=== PATIENT | male | born 1945 | race Caucasian/White ===

== ENCOUNTER 2019-05-27 16:24 | Inpatient (IN) | payer MEDICARE, OTHER ==
[~2019-05-27] VITALS: Ht 172.7 cm; Wt 82.7 kg
[2019-05-27] MEDS ORDERED: XARE20TA PO (16:39)
[2019-05-27] MEDS ORDERED: MULTCAP PO (16:39)
[2019-05-27] MEDS ORDERED: LOSA100T8 PO (16:39)
[2019-05-27] MEDS ORDERED: NS 500 ML IV ONE (17:30)
[2019-05-27 17:50] LABS: BASO # 0.1 10^3/uL (0.0-0.2); BASO % 0.9 % (0.0-1.0); EOS # 0.1 10^3/uL (0.0-0.50); EOS % 2.1 % (0.0-3.0); HEMATOCRIT 40.2 % (42.0-52.0); HEMOGLOBIN 13.7 g/dl (13.5-17.5); LYMPH # 1.8 10^3/uL (1.5-4.5); LYMPH % 26.9 % (24.0-44.0); MEAN CORPUSCULAR HEMOGLOBIN 34.2 pg (27.0-33.0); MEAN CORPUSCULAR HGB CONC 34.1 g/dl (32.0-36.5); MEAN CORPUSCULAR VOLUME 100.2 fl (80.0-96.0); MONO # 0.6 10^3/uL (0.0-0.8); MONO % 8.9 % (0.0-5.0); NEUTROPHILS # 4.1 10^3/uL (1.8-7.7); NEUTROPHILS % 60.9 % (36.0-66.0); PLATELET COUNT, AUTOMATED 318 10^3/uL (150-450); RED BLOOD COUNT 4.01 10^6/uL (4.30-6.10); WHITE BLOOD COUNT 6.8 10^3/uL (4.0-10.0)
[2019-05-27 17:55] LABS: INR 1.27; PARTIAL THROMBOPLASTIN TIME 30.7 SECONDS (25.0-38.4); PROTHROMBIN TIME 15.6 SECONDS (11.8-14.0)
[2019-05-27 17:59] LABS: ALBUMIN 3.4 GM/DL (3.2-5.2); ALT/SGPT 19 U/L (12-78); BILIRUBIN,DIRECT 0.2 MG/DL (0.0-0.2); BILIRUBIN,TOTAL 0.9 MG/DL (0.2-1.0); CPK CREATINE PHOSPHOKINASE 67 U/L (39-308); LIPASE 114 U/L (73-393); MB/CK RELATIVE INDEX 1.49 (< OR =4); TOTAL PROTEIN 6.8 GM/DL (6.4-8.2); TROPONIN I < 0.02 NG/ML (< 0.10)
--- NOTE | 2019-05-27 18:12 | REP ---
Portable chest, 05:38 p.m., single AP view with the patient upright: There are no comparisons. The lung well[place] are clear. The cardiac size is normal. The rashawn, mediastinum, and skeletal structures are unremarkable. Impression: Negative portable chest. Electronically Signed by Pedrito Perez MD 05/27/2019 06:03 P
[2019-05-27] MEDS ORDERED: NS 1,000 ML IV ONE (18:15)
[2019-05-27] MEDS ORDERED: PANTOPRAZOLE 40MG INJ (PROTONIX) (C9113) IV ONE (18:15)
[2019-05-27] MEDS ORDERED: ACETAMINOPHEN TAB 650MG DOSE (2X325MG) PO PRN (19:30)
--- NOTE | 2019-05-27 20:36 | HPEPDOC ---
[facility] Medical History & Physical Date of Admission May 27, 2019 Date of Service: May 27, 2019 History and Physical CHIEF COMPLAINT: [BLACK STOOL] HISTORY OF PRESENT ILLNESS: [This is a 73 yo male with pmhx of htn, afib (re solved per pt since 2011), recent left hip surgery (05/02/19) placed on xarelto who presented to the ed for "black stool" today around 2pm. Patient said he did feel lightheaded, but did not pass out. He denied any other symptoms such as nausea, vomiting , chest pain, sob or abd pain. Patient was started on xeralto since his surgery on May 02. He was on aspirin prior to the surgery without any previous melena or hematemesis. He denied stomach pain, GERD, dyspepsia. ] PAST MEDICAL HISTORY: 1. [htn]. 2. [afib - resolved since 2011 per pt ]. 3. [prostate ca - s/p surgery - in remission for years ]. PAST SURGICAL HISTORY: 1. [prostatectomy ]. 2. [left hip replacement ]. 3. [appendectomy ]. SOCIAL HISTORY: , lives with . denied any hx of smoking, etoh or drug use FAMILY HISTORY: daughter - cva at age 47 mother - ALS father - parkinson's disease ALLERGIES: Please see below. HOME MEDICATIONS: Please see below. ROS - all 10 point review of system is negative except for whats listed in HPI Physical exam Gen: NAD, healthy appearing , very pleasant HEENT: normocephalic, atraumatic, no discharge from ears or nose, no oropharyngeal erythema or exudate, neck is supple, no lymphadenopathy, trachea midline CVS: RRR, normal S1n S2, no murmur, rubs, or gallops, no edema, no jvd Resp: LCTAB, no rhonchi, wheezes. or crackles Abd : soft nontender, normal bowel sounds, no rebound tenderness or guarding MSK: full range of motion, strength 5/5, no swelling, left help with post surgical scar , healing very well, no tenderness, exudate or erythema Neuro: AOAx3, no confusion, no focal deficit Psych: normal mood and affect, good judgment LABORATORY DATA: See below. IMAGING: [ cxr -wnl ] ASSESSMENT and Plan MELENA -Patient is stable , no complaint at this time -NPO - no exceptions -keep type and screen active -H and H q8h for now -monitor in pcu -GI consult -gentle hydration - bp 150/80 -hold xeralto -no nsaids, Antoiplt or AC at this time -Hold BP meds -ok with transfusion HTN - hold bp meds afib - resolved -monitor on tele for now dvt ppx - scd full code , from home , no svc Vital Signs Vital Signs Date Time Temp Pulse Resp B/P (MAP) Pulse Ox O2 Delivery O2 Flow Rate FiO2 05/27/19 18:54 84 100 05/27/19 18:45 97.8 18 136/79 (98) 05/27/19 17:55 Room Air Laboratory Data Labs 24H Laboratory Tests 2 05/27/19 17:19: Immature Granulocyte % (Auto) 0.3, White Blood Count 6.8, Red Blood Count 4.01L, Hemoglobin 13.7, Hematocrit 40.2L, Mean Corpuscular Volume 100.2H, Mean Corpuscular Hemoglobin 34.2H, Mean Corpuscular Hemoglobin Concent 34.1, Red Cell Distribution Width 12.7, Platelet Count 318, Neutrophils (%) (Auto) 60.9, Lymphocytes (%) (Auto) 26.9, Monocytes (%) (Auto) 8.9H, Eosinophils (%) (Auto) 2.1, Basophils (%) (Auto) 0.9, Neutrophils # (Auto) 4.1, Lymphocytes # (Auto) 1.8, Monocytes # (Auto) 0.6, Eosinophils # (Auto) 0.1, Basophils # (Auto) 0.1, Nucleated Red Blood Cells % (auto) 0.0, Prothrombin Time 15.6H, Prothromb Time International Ratio 1.27, Activated Partial Thromboplast Time 30.7, Aspartate Amino Transf (AST/SGOT) 17, Alanine Aminotransferase (ALT/SGPT) 19, Alkaline Phosphatase 159H, Total Bilirubin 0.9, Direct Bilirubin 0.2, Total Creatine Kinase 67, Creatine Kinase MB 1.0, Creatine Kinase MB Relative Index 1.49, Troponin I < 0.02, Total Protein 6.8, Albumin 3.4, Albumin/Globulin Ratio 1.00, Lipase 114 05/27/19 17:48: Lactic Acid Level 1.0 05/27/19 17:52: POC Glucose (Misc Panel) 84, POC Sodium (Misc Panel) 139, POC Potassium (Misc Panel) 3.8, POC Chloride (Misc Panel) 102, POC Total CO2 (Misc Panel) 28.0H, POC Blood Urea Nitrogen (Misc Panel 21, POC Ionized Calcium (Misc Panel) 4.5, POC Creatinine (Misc Panel) 0.9, POC Hematocrit (Misc Panel) 39.0 CBC/BMP Laboratory Tests 05/27/19 17:19 Red Blood Count 4.01 L, Mean Corpuscular Volume 100.2 H, Mean Corpuscular Hemoglobin 34.2 H, Mean Corpuscular Hemoglobin Concent 34.1, Red Cell Distribution Width 12.7, Neutrophils (%) (Auto) 60.9, Lymphocytes (%) (Auto) 26.9, Monocytes (%) (Auto) 8.9 H, Eosinophils (%) (Auto) 2.1, Basophils (%) (Auto) 0.9, Neutrophils # (Auto) 4.1, Lymphocytes # (Auto) 1.8, Monocytes # (Auto) 0.6, Eosinophils # (Auto) 0.1, Basophils # (Auto) 0.1 Home Medications Scheduled Losartan/Hydrochlorothiazide (Losartan-Hctz 100-12.5 mg Tab) 1 Each Tablet, 1 TAB PO DAILY Multivitamin (Multivitamins) 1 Each Capsule, 1 CAP PO DAILY Rivaroxaban (Xarelto) 20 Mg Tablet, 20 MG PO DAILY Allergies Coded Allergies: No Known Allergies (Unverified , 05/27/19) A-FIB/CHADSVASC A-FIB History Current/History of A-Fib/PAF?: Yes Current PO Anticoag Therapy: No Age/Risk Factor Scoring CHADSVASC: CHADSVASC Response (Comments) Value Age Risk Factor Age >/= 75 years old 2 Gender Risk Factor Male 0 Hx of CHF No 0 Hx of HTN Yes 1 Hx of Stroke/TIA/or VTE No 0 Hx of Diabetes No 0 Hx of Vascular Disease No 0 Total 3 Treatment Treatment ordered: NONE Reason Anticoagulant not given: Current bleeding CARLOS SOLOMON MD May 27, 2019 20:21
[2019-05-27 21:41] VITALS: BP 136/77
[2019-05-27] MEDS: PANTOPRAZOLE SODIUM 40 MG in D5W 50 ML IV SCH (22:19)
--- NOTE | 2019-05-27 23:55 | ECGEPIP ---
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
[2019-05-27 23:59] VITALS: BP 111/64
[2019-05-28] MEDS: PANTOPRAZOLE SODIUM 40 MG in D5W 50 ML IV SCH ×3 (01:58→12:06)
[2019-05-28 04:00] VITALS: BP 136/65
[2019-05-28] MEDS ORDERED: NS 1,000 ML IV SCH (04:15)
[2019-05-28 05:15] LABS: HEMATOCRIT 36.4 % (42.0-52.0); HEMOGLOBIN 12.3 g/dl (13.5-17.5); MEAN CORPUSCULAR HEMOGLOBIN 32.8 pg (27.0-33.0); MEAN CORPUSCULAR HGB CONC 33.8 g/dl (32.0-36.5); MEAN CORPUSCULAR VOLUME 97.1 fl (80.0-96.0); PLATELET COUNT, AUTOMATED 280 10^3/uL (150-450); RED BLOOD COUNT 3.75 10^6/uL (4.30-6.10); WHITE BLOOD COUNT 5.4 10^3/uL (4.0-10.0)
[2019-05-28 05:35] LABS: BLOOD UREA NITROGEN 16 MG/DL (7-18); CALCIUM LEVEL 8.6 MG/DL (8.8-10.2); CARBON DIOXIDE LEVEL 28 MEQ/L (21-32); CHLORIDE LEVEL 110 MEQ/L (98-107); CREATININE FOR GFR 0.89 MG/DL (0.70-1.30); GLOMERULAR FILTRATION RATE > 60.0 (>42); GLUCOSE, FASTING 86 MG/DL (70-100); MAGNESIUM LEVEL 1.9 MG/DL (1.8-2.4); POTASSIUM SERUM 3.8 MEQ/L (3.5-5.1); SODIUM LEVEL 140 MEQ/L (136-145)
[2019-05-28 08:00] VITALS: BP 121/76
[2019-05-28] MEDS ORDERED: LIDOCAINE 2% INJ 100 MG/5 ML SDV (FOR ANES.) As Ordered ONE (10:41)
[2019-05-28] MEDS ORDERED: PROPOFOL 200 MG/20 ML VIAL As Ordered ONE (10:41)
--- NOTE | 2019-05-28 10:59 | ROOR ---
Patient Name: Adam Brooke Procedure Date: 05/28/2019 10:15 AM Date of : 1945 Age: 73 Gender: Male Note Status: Finalized Procedure: Upper Endoscopy + Biopsies Indications: Acute post hemorrhagic anemia, Melena Providers: Los Slade MD Referring MD: 1. No Referring Physician 1. No Referring Physician, Admin. Requesting Provider: Medicines: Monitored Anesthesia Care Complications: No immediate complications. Procedure: Pre-Anesthesia Assessment: - The heart rate, respiratory rate, oxygen saturations, blood pressure, adequacy of pulmonary ventilation, and response to care were monitored throughout the procedure. The Endoscope was introduced through the mouth, and advanced to the second part of duodenum. The upper GI endoscopy was accomplished without difficulty. The patient tolerated the procedure well. Findings: The Z-line was irregular and was found 40 cm from the incisors. Multiple biopsies were obtained with cold forceps for evaluation to rule out Garcia's Esophagus randomly at the gastroesophageal junction. A small hiatal hernia was present. No other significant abnormalities were identified in a careful examination of the stomach. Biopsies were taken with a cold forceps in the gastric antrum for Helicobacter pylori testing. One non-bleeding cratered duodenal ulcer with no stigmata of bleeding was found in the first portion of the duodenum. The exam was otherwise without abnormality. Impression: - Z-line irregular, 40 cm from the incisors. - Small hiatal hernia. - One non-bleeding duodenal ulcer with no stigmata of bleeding. - The examination was otherwise normal. - Multiple biopsies were obtained at the gastroesophageal junction. - Biopsies were taken with a cold forceps for Helicobacter pylori testing. - The examination was otherwise normal. Recommendation: - Return patient to [facility] for [facility] care. - Use Prilosec (omeprazole) 40 mg PO BID. - Use sucralfate tablets 1 gram PO BID. - Repeat upper endoscopy in 2 months to check healing. - Return to referring physician. - The findings and recommendations were discussed with the patient's family. Los Slade MD Los Slade MD 05/28/2019 10:59:24 AM Electronically signed by Los Slade MD Number of Addenda: 0 Note Initiated On: 05/28/2019 10:15 AM Estimated Blood Loss: Estimated blood loss: none.
[2019-05-28 11:35] VITALS: BP 137/83
[2019-05-28 14:30] VITALS: BP 103/66
[2019-05-28] MEDS ORDERED: DIGOXIN INJ 0.5 MG/2 ML AMP (J1160) IV ONE (15:00)
[2019-05-28 16:00] VITALS: BP 121/65
[2019-05-28] MEDS ORDERED: DIGO0.12 PO (16:07)
[2019-05-28] MEDS ORDERED: PROTPAK PO (16:07)
[2019-05-28] MEDS ORDERED: SUCR1TA PO (16:13)
--- NOTE | 2019-05-29 14:40 | DS.PDOC ---
Discharge Summary General Date of Admission May 27, 2019 at 19:20 Date of Discharge May 282018 Specialist/Consultants Involve: Los Slade Discharge Summary PROCEDURES PERFORMED DURING STAY: Esophagogastroduodenoscopy. ADMITTING DIAGNOSES: 1. Acute GI bleed. DISCHARGE DIAGNOSES: 1. Acute GI bleed resolved, duodenal ulcer, essential hypertension, paroxysmal atrial fibrillation, osteoarthritis. COMPLICATIONS/CHIEF COMPLAINT: Gi Bleed. HISTORY OF PRESENT ILLNESS/HOSPITAL COURSE: This is a 73-year-old male who presented with acute onset of black stools. It was accompanied by lightheadedness. He did not have other symptoms such as dizziness, nausea, vomiting, chest pain or shortness of breath. Of interest, the patient had been placed on Xarelto for DVT prophylaxis after hip surgery one month ago. The patient's Xarelto was stopped. Hemoglobin was initially 13 and on recheck was 12.3. He did not have any other bloody stools after his admission . He remained hemodynamically stable with no hypotension or tachycardia. He did not require transfusion. We did contact the GI service and were able to arrange for him to undergo evaluation by endoscopy. A fairly large but nonbleeding ulcer to the duodenal region was found. Recommendations were for him to be on twice daily proton pump inhibitor and Carafate. Biopsy results are otherwise pending. Of interest, the patient is scheduled to have his other hip replaced as well within 2 weeks. The patient also has paroxysmal atrial fibrillation. He states he is not had any abnormal rhythm and has not been on anticoagulation other than a baby aspirin for at least 2 years. He did have a brief 20 minute episode of rapid ventricular response and this stopped with a single dose of digoxin. Patient is not usually on any rate control medication at baseline. The patient's care is primarily in [place]. He has appointments set up with there on Thursday for preop eval. His bird sitter is also there. Plans are for him to follow-up and discuss medications/anticoagulation/DVT prophylaxis. There is otherwise no contraindication to him having his hip surgery.. DISCHARGE MEDICATIONS: Please see below. ALLERGIES: Please see below. PHYSICAL EXAMINATION ON DISCHARGE: VITAL SIGNS: Please see below. GENERAL: Awake and alert HEENT: Neck was supple with no adenopathy, thyromegaly, oral mucosa was moist, he did not exhibit pallor CARDIOVASCULAR EXAMINATION: Regular rate and rhythm with a normal S1 and S2 RESPIRATORY EXAMINATION: Clear to auscultation with good air movement ABDOMINAL EXAMINATION: Abdomen was soft with no focal area of tenderness, bowel tones are present EXTREMITIES: No peripheral edema or lesions SKIN: No jaundice or pallor NEUROLOGICAL EXAMINATION: No focal neuromotor or sensory deficit PSYCHIATRIC EXAMINATION: Humor was fully intact LABORATORY DATA: Please see below. IMAGING: PROGNOSIS: ACTIVITY: As tolerated. DIET: Heart healthy DISCHARGE PLAN: The patient is to be discharged home. He already has appointments scheduled in [place] for his next preop eval.. Additionally, he plans to follow-up with his bird sitter. This is to discuss future anticoagulation related to his surgery and to his atrial fibrillation. His Eliquis held in the interim. He will be on Protonix and Carafate. There is otherwise no direct contraindication to him receiving his hip replacement from a medicine standpoint. DISPOSITION: 01 Home, Self-Care. DISCHARGE INSTRUCTIONS: 1. . ITEMS TO FOLLOWUP ON ON OUTPATIENT: 1. . DISCHARGE CONDITION: Stable. TIME SPENT ON DISCHARGE: Greater than 45 minutes. Vital Signs/I&Os Vital Signs Date Time Temp Pulse Resp B/P (MAP) Pulse Ox O2 Delivery O2 Flow Rate FiO2 05/28/19 16:00 97.3 90 18 121/65 (83) 99 05/27/19 17:55 Room Air I&O- Last 24 Hours up to 6 AM 05/29/19 06:00 Intake Total 1355 ml Output Total 950 ml Balance 405 ml Discharge Medications Scheduled Digoxin (Digoxin) 125 Mcg Tablet, 1 TAB PO DAILY Losartan/Hydrochlorothiazide (Losartan-Hctz 100-12.5 mg Tab) 1 Each Tablet, 1 TAB PO DAILY, (Reported) Multivitamin (Multivitamins) 1 Each Capsule, 1 CAP PO DAILY, (Reported) Pantoprazole Sodium (Protonix) 40 Mg Granpkt.dr, 40 MG PO BID Sucralfate (Sucralfate) 1 Gm Tablet, 1 GRAM PO BID Allergies Coded Allergies: No Known Allergies (Unverified , 05/27/19) BONY ZAMORA MD May 29, 2019 14:40
--- NOTE | 2019-05-30 09:52 | CR ---
DATE OF CONSULTATION: 05/28/2019 This is a 73-year-old white male admitted to [facility] on 05/27/2019. The patient was admitted with a history of a single episode of melena. The patient has a past history of hypertension and resolved atrial fibrillation in 2011. He had a left hip operation on 05/02/2019 and was placed on Xarelto. The patient had a single episode of black stools and presented to the emergency room. No complaints of abdominal pain. No fevers, night sweats, shaking chills. No hematemesis. The patient has been taking nonsteroidals, specifically Aleve, because of his hip pain prior to surgery. The patient is being seen by GI for this episode of melena. PAST MEDICAL HISTORY: 1. Hypertension. 2. Atrial fibrillation, resolved in 2011. 3. Status post prostate cancer, status post surgery, in remission for years. PAST SURGICAL HISTORY: 1. Left hip replacement approximately 30 days ago. 2. Appendectomy. 3. Prostatectomy. SOCIAL HISTORY: No history of alcohol or smoking. FAMILY HISTORY: Daughter had a CVA at age 27. Mother had amyotrophic lateral sclerosis (ALS). Father had Parkinson's disease. ALLERGIES: No known declared allergies. REVIEW OF SYSTEMS: 10-point review of systems was negative except for the history of present illness. PHYSICAL EXAMINATION: Well-developed, well-nourished white male in no obvious acute distress. Appears stated age. Chest: Clear to auscultation. Cardiovascular exam showed a regular rhythm. No murmurs, rubs or gallops. Normal physiological split S1, S2. Abdomen: Soft, nontender. No masses, guarding, rebound. No hepatosplenomegaly. Bowel sounds positive. Laboratory studies on admission showed a white count 6800, hemoglobin and hematocrit of 13.7 and 40.2. The patient's hemoglobin and hematocrit on 05/28 was 12.3 and 36.4. Platelets were normal. Chemistry was completely normal. The patient's coagulation showed INR 1.27. The patient had chest x-ray on admission, which was read as negative for any abnormalities. ANALYSIS: The patient has been taking Xarelto to prevent DVT status post hip surgery. PLAN: Set the patient up for the upper endoscopy to assess the possible cause of his bout of black stools and slight drop in his blood count. Upper endoscopy to rule out any etiology for his bleeding episode. The patient needs to stop the Xarelto until otherwise advised.
== END 2019-05-28 17:14 | disposition home or self-care (01) | DRG 378 ==
LOC: M ED 16:24 → M ED INP 19:20 → M PCU 21:41
PROVIDERS: ADMIT Internal Medicine; ATTEND Internal Medicine
PROC: 0DB48ZX Excision of Esophagogastric Junction, Via Natural or Artificial Opening Endoscopic, Diagnostic (ICD-10-PCS; 2019-05-28)
PROC: 0DB78ZX Excision of Stomach, Pylorus, Via Natural or Artificial Opening Endoscopic, Diagnostic (ICD-10-PCS; principal; 2019-05-28 09:49)
DX: K92.1 Melena (principal); I47.2 Ventricular tachycardia; I10 Essential (primary) hypertension; K22.8 Other specified diseases of esophagus; K22.70 Barrett's esophagus without dysplasia; I48.0 Paroxysmal atrial fibrillation; K26.9 Duodenal ulcer, unspecified as acute or chronic, without hemorrhage or perforation; K44.9 Diaphragmatic hernia without obstruction or gangrene; Z85.46 Personal history of malignant neoplasm of prostate; Z79.01 Long term (current) use of anticoagulants; Z79.899 Other long term (current) drug therapy; M19.90 Unspecified osteoarthritis, unspecified site; Z96.642 Presence of left artificial hip joint; Z90.49 Acquired absence of other specified parts of digestive tract